=== PATIENT | male | born 1975 | race Caucasian/White ===

== ENCOUNTER → 2016-08-13 | Outpatient (CLI) | payer MEDICARE, MEDICAID, OTHER ==
--- NOTE | 2016-08-13 10:47 | XR ---
EXAMINATION TYPE: XR chest 2V DATE OF EXAM: 08/13/2016 10:30 AM COMPARISON: 02/18/2009 HISTORY: Cough and hemoptysis FINDINGS: The lungs are clear and there is no pneumothorax, pleural effusion, or focal pneumonia. IMPRESSION: 1. No acute process.
== END | disposition home or self-care (01) ==
LOC: RADXRMAIN 10:16
PROVIDERS: ATTEND Family Medicine
DX: R04.2 Hemoptysis (principal)
CPT/HCPCS: 71020

== ENCOUNTER → 2016-10-03 | Outpatient (CLI) | payer MEDICARE, OTHER ==
--- NOTE | 2016-10-03 08:13 | CT ---
EXAMINATION TYPE: CT chest w con DATE OF EXAM: 10/03/2016 8:02 AM COMPARISON: NONE HISTORY: Chest pain CT DLP: 285.40 mGycm Automated exposure control for dose reduction was: CT scan of the chest is performed with IV Contrast, patient injected with 100 mL of Omnipaque 300. FINDINGS: There is mild dependent atelectasis at the lung bases. The lungs are otherwise clear. There is no significant axillary, mediastinal or hilar adenopathy. There is no pleural or pericardial fluid. The heart is not enlarged. I see no evidence of pulmonary embolus. The aorta is normal in maddy iber. There is a small hiatal hernia. Visualized upper abdominal structures are normal. No osseous lesion is seen. IMPRESSION: 1. NORMAL CT SCAN OF THE CHEST. 2. SMALL HIATAL HERNIA.
== END | disposition home or self-care (01) ==
LOC: RADCTMAIN 07:18
PROVIDERS: ATTEND Family Medicine
DX: R07.9 Chest pain, unspecified (principal); R04.2 Hemoptysis
CPT/HCPCS: 71260; Q9967

== ENCOUNTER 2021-06-04 21:39 | Emergency (ER) | payer MEDICARE, OTHER ==
--- NOTE | 2021-06-04 22:00 | ED ---
Alcohol HPI - General Stated Complaint: ETOH Time Seen by Provider: 06/04/21 21:47 - History of Present Illness Initial Comments: This patient is brought by ambulance to have evaluation of intoxication. The patient is reportedly staying at the residence of his parents. Reported to have consumed about a fifth of gin today. Parents called EMS because they thought his breathing sounded funny. when I interview the patient, he denies symptoms. Patient denies any fall or injury. No head, neck, chest, abdomen or other pain. Denies vomiting. Denies dyspnea. MD Complaint: alcohol intoxication Last Drink: just [employer] -: hour(s) Associated Symptoms: denies other symptoms - Related Data Home Medications Medication Instructions Recorded Confirmed Fluticasone Nasal [place] [Flonase 1 spray EA NOSTRIL DAILY 06/04/21 06/04/21 Nasal [place]] Rosuvastatin Calcium [Crestor] 20 mg PO DAILY 06/04/21 06/04/21 Previous Rx's Medication Instructions Recorded Mirtazapine [Remeron] 15 mg PO HS #30 tab 09/07/15 Allergies Allergy/AdvReac Type Severity Reaction Status Date / Time No Known Allergies Allergy Verified 06/04/21 22:30 Review of Systems ROS Statement: Those systems with pertinent positive or pertinent negative responses have been documented in the HPI. ROS Other: All systems not noted in ROS Statement are negative. Respiratory: Denies: cough, dyspnea Cardiovascular: Denies: chest pain Gastrointestinal: Denies: abdominal pain, vomiting Musculoskeletal: Denies: back pain Neurological: Denies: headache Psychiatric: Denies: suicidal thoughts Past Medical History Past Medical History: No Reported History Additional Past Medical History / Comment(s): mentally challenged History of Any Multi-Drug Resistant Organisms: None Reported Additional Past Surgical History / Comment(s): toe Past Anesthesia/Blood Transfusion Reactions: No Reported Reaction Past Psychological History: Anxiety, Depression Past Alcohol Use History: Daily Past Drug Use History: None Reported General Exam General appearance: alert, in no apparent distress, appears intoxicated Head exam: Present: atraumatic, normocephalic Eye exam: Present: normal appearance, PERRL, EOMI, nystagmus. Absent: scleral icterus, conjunctival injection ENT exam: Present: normal oropharynx Neck exam: Present: normal inspection, full ROM. Absent: tenderness Respiratory exam: Present: normal lung sounds bilaterally. Absent: respiratory distress, wheezes, rales, rhonchi, stridor, accessory muscle use Cardiovascular Exam: Present: regular rate, normal rhythm, normal heart sounds. Absent: systolic murmur, diastolic murmur, rubs, gallop GI/Abdominal exam: Present: soft. Absent: distended, tenderness, guarding Extremities exam: Present: normal inspection, normal capillary refill. Absent: pedal edema Back exam: Present: normal inspection. Absent: vertebral tenderness Neurological exam: Present: alert, other (There is some ataxia). Absent: motor sensory deficit Skin exam: Present: warm, dry, intact, normal color. Absent: rash Course Vital Signs 06/04/21 22:01 Temperature 97.6 F Pulse Rate 111 H Respiratory 16 Rate Blood Pressure 112/75 O2 Sat by Pulse 93 L Oximetry Disposition Clinical Impression: Alcoholic intoxication Disposition: HOME SELF-CARE Condition: Good Instructions (If sedation given, give patient instructions): Alcohol Intoxication (ED) Is patient prescribed a controlled substance at d/c from ED?: No Referrals: Joan Kilgore III, MD [Primary Care Provider] - 1-2 days
[2021-06-04 22:03] VITALS: BP 112/75; RESP 16; TEMP 97.6
[2021-06-04 23:39] VITALS: PULSE 100
== END 2021-06-04 23:46 | disposition home or self-care (01) ==
LOC: EC 21:39
DX: F10.129 Alcohol abuse with intoxication, unspecified (principal); F41.9 Anxiety disorder, unspecified; F32.A Depression, unspecified; Y90.9 Presence of alcohol in blood, level not specified
CPT/HCPCS: 99284